=== PATIENT | female | born 1980 | race Two or more races ===

== ENCOUNTER 2017-10-30 14:45 | Inpatient (IN) | payer OTHER ==
[~2017-10-30] VITALS: Ht 162.6 cm; Wt 73.5 kg
[~2017-10-30 14:45] MED LIST: MOTRIN800 MG PO
[2017-11-28] MEDS ORDERED: PRENATAL TABLE1 EAC1 PO (06:24)
== END 2017-11-30 10:55 | DRG 775 ==
LOC: SURG-SUITE 11-28 05:25 → LDR 11-28 05:25 → SURG-SUITE 11-28 12:07 → LDR 12-06 14:45
PROC: 10E0XZZ Delivery of Products of Conception, External Approach (ICD-10-PCS; principal; 2017-11-28)
PROC: 0KQM0ZZ Repair Perineum Muscle, Open Approach (ICD-10-PCS; 2017-11-28)
PROC: 4A033R1 Measurement of Arterial Saturation, Peripheral, Percutaneous Approach (ICD-10-PCS; 2017-11-28)
PROC: 4A1HXCZ Monitoring of Products of Conception, Cardiac Rate, External Approach (ICD-10-PCS; 2017-11-28)
DX: O70.1 Second degree perineal laceration during delivery (principal); Z37.0 Single live birth; Z3A.38 38 weeks gestation of pregnancy; O09.513 Supervision of elderly primigravida, third trimester

== ENCOUNTER 2018-12-31 10:09 | Inpatient (IN) | payer OTHER ==
[~2018-12-31] VITALS: Ht 162.6 cm; Wt 2.3 kg
[~2018-12-31 10:09] MED LIST changes: +PRENATAL TABLE1 EAC1 PO
== END 2019-01-02 13:50 | disposition home or self-care (01) | DRG 805 ==
LOC: LDR 10:09 → SURG-SUITE 10:09
PROVIDERS: ADMIT Obstetrics & Gynecology
PROC: 10E0XZZ Delivery of Products of Conception, External Approach (ICD-10-PCS; principal; 2018-12-31)
PROC: 0KQM0ZZ Repair Perineum Muscle, Open Approach (ICD-10-PCS; 2018-12-31)
PROC: 4A1HXCZ Monitoring of Products of Conception, Cardiac Rate, External Approach (ICD-10-PCS; 2018-12-31)
DX: O70.1 Second degree perineal laceration during delivery (principal); O60.14X0 Preterm labor third trimester with preterm delivery third trimester, not applicable or unspecified; Z37.0 Single live birth; Z3A.34 34 weeks gestation of pregnancy